=== PATIENT | male | born 1960 | race Hispanic/Latino ===

== ENCOUNTER 2023-11-23 06:32 | Observation (INO) | payer BC ==
[2023-11-21 11:48] LABS: BASOPHILS # (AUTO) 0.03 K/uL (0.00-0.20); BASOPHILS % (AUTO) 0.4 % (0.0-5.0); EOSINOPHILS # (AUTO) 0.11 K/uL (0.00-0.70); EOSINOPHILS % (AUTO) 1.5 % (0.0-8.0); HEMATOCRIT 50.1 % (42-54); IMMATURE GRANULOCYTE ABSOLUTE 0.02 K/uL (0-1); LYMPHOCYTES # (AUTO) 1.4 K/uL (1.0-4.8); LYMPHOCYTES % (AUTO) 19.1 % (21.0-51.0); MEAN CORPUSCULAR HEMOGLOBIN 20.7 pg (27.0-33.0); MEAN CORPUSCULAR HGB CONC 28.1 g/dL (32.0-36.0); MEAN CORPUSCULAR VOLUME 73.5 fL (79-99); MONOCYTES # (AUTO) 0.8 K/uL (0.1-1.0); MONOCYTES % (AUTO) 10.7 % (3.0-13.0); PLATELET COUNT (AUTO) 221 K/uL (130-400); RED BLOOD CELL COUNT(AUTO) 6.82 MIL/uL (4.50-6.20); RED CELL DISTRIBUTION WIDTH 21.9 % (11.0-15.5); WHITE BLOOD COUNT (AUTO) 7.4 K/uL (4.8-10.8)
[2023-11-21 11:59] LABS: INR 1.12 (0.85-1.15)
[2023-11-21 12:01] LABS: PARTIAL THROMBOPLASTIN TIME 26.5 SEC (26.3-35.5)
[2023-11-21 12:19] LABS: CREATININE 0.9 mg/dL (0.5-1.3); POTASSIUM 3.8 mmol/L (3.5-5.1)
[2023-11-21 12:21] VITALS: BP 162/62; PULSE 108; RESP 19
[2023-11-21 13:17] LABS: ADD UA MICROSCOPIC YES; APPEARANCE,URINE CLEAR (CLEAR); BILIRUBIN,URINE NEGATIVE (NEGATIVE); COLOR,URINE LIGHT-YELLOW (YELLOW); GLUCOSE, URINE (UA) >=1000 mg/dL (NEGATIVE); KETONES,URINE NEGATIVE (NEGATIVE); LEUKOCYTE ESTERASE ,URINE NEGATIVE Leu/uL (NEGATIVE); NITRATE,URINE NEGATIVE (NEGATIVE); OCCULT BLOOD,URINE NEGATIVE (NEGATIVE); PROTEIN,URINE NEGATIVE (NEGATIVE)
[2023-11-21 13:18] LABS: MUCUS,URINE RARE LPF (None Seen); RBC,URINE 0-1 /HPF (0-1); SQUAMOUS EPITHELIAL CELL,UR RARE /HPF (0-2); WBC,URINE 0-1 /HPF (0-1)
[2023-11-23] VITALS (26 sets, daily range): BP systolic 102–143; BP diastolic 62–79; PULSE 64–88; RESP 14–19; O2SAT 96
[~2023-11-23] VITALS: Ht 167.6 cm; Wt 71.0 kg
[~2023-11-23 06:32] MED LIST: ATOR20TA65 PO; EMPA1TAB19 PO; FURO20TA4 PO; INSU200I4 SQ; LISI5TAB21 PO; METO50TA18 PO; OMEP40CA21 PO; RIVA20TA PO; TIRZ15PE SQ
[2023-11-23] MEDS: ACETAMINOPHEN 1,000 MG/100 ML VIAL IV ONE (07:02)
[2023-11-23] MEDS ORDERED: CEFAZOLIN SODIUM 1 GM VIAL ONE ×2 (07:02→08:17)
[2023-11-23] MEDS: FAMOTIDINE 20MG VIAL IV ONE (07:02)
[2023-11-23] MEDS ORDERED: LIDOCAINE PF 100MG/5ML (2%) SYRINGE 5ML ONE (07:13)
[2023-11-23] MEDS ORDERED: FENTANYL CITRATE PF 50 MCG/1 ML 2ML VIAL ONE (07:13)
[2023-11-23] MEDS ORDERED: PROPOFOL 10 MG/ML 20ML VIAL IV ONE (07:13)
[2023-11-23] MEDS ORDERED: ROCURONIUM BROMIDE 10MG/1ML 5ML VL ONE ×2 (07:14→09:26)
[2023-11-23] MEDS ORDERED: SUCCINYLCHOLINE CHLORIDE 20 MG/ML 10 ML VIAL ONE (07:14)
[2023-11-23] MEDS ORDERED: KETAMINE 50MG/ML SYRINGE 50 MG/ML DISP.SYRIN ONE (07:16)
[2023-11-23] MEDS ORDERED: ROPIVACAINE 0.5% 5MG/ML 30ML ONE (07:16)
[2023-11-23] MEDS ORDERED: MORPHINE PF 100MG/10ML AMP IV ONE ×2 (07:33→08:41)
[2023-11-23] MEDS ORDERED: KETOROLAC 30MG VIAL (30MG/ML) ONE (07:46)
[2023-11-23] MEDS: 0.9%NACL 1000ML 1,000 ML IV ONE (07:57)
[2023-11-23] MEDS: CEFAZOLIN SODIUM 2 GM VIAL ONE (07:57)
[2023-11-23] MEDS: VANCOMYCIN IV ONE (08:00)
[2023-11-23] MEDS: [UNRECOGNIZED DRUG - OTHER] IV ONE (08:00)
[2023-11-23] MEDS ORDERED: ONDANSETRON 4MG INJ ONE (08:08)
[2023-11-23] MEDS ORDERED: DEXAMETHASONE SOD PHOSPHATE 10MG/ML 1ML VIAL ONE (08:08)
[2023-11-23] MEDS ORDERED: PHENYLEPHRINE HCL 10 MG/ML 1ML VIAL IV ONE (08:13)
[2023-11-23] MEDS ORDERED: VANCOMYCIN 1G/250ML KIT 250 ML IV ONE (08:40)
[2023-11-23] MEDS: TRANEXAMIC ACID 1000MG/10ML ONE (09:04)
[2023-11-23] MEDS ORDERED: NEOSTIGMINE METHYLSULFATE 1MG/ML IV ONE (10:45)
[2023-11-23] MEDS ORDERED: GLYCOPYRROLATE 0.2 MG/ML 5 ML VIAL ONE (10:45)
[2023-11-23] MEDS ORDERED: FERROUS FUMARATE 324 MG TABLET PO PRN (11:00)
[2023-11-23] MEDS ORDERED: CALCIUM CARB 500MG PO PRN (11:00)
[2023-11-23] MEDS ORDERED: POTASSIUM CHLORIDE 10% ELIXIR 20 MEQ/15 ML UDCUP PO PRN (11:00)
[2023-11-23] MEDS ORDERED: KCL 20 MEQ ERTAB PO PRN (11:00)
[2023-11-23] MEDS ORDERED: POTASSIUM CHLORIDE 20MEQ/100ML 100 ML IV PRN (11:00)
[2023-11-23] MEDS: ACETAMINOPHEN 500 MG TABLET PO SCH (11:00)
[2023-11-23] MEDS ORDERED: DiphenhydrAMINE HCL 50 MG/ML VIAL IVP PRN (11:00)
[2023-11-23] MEDS: INSULIN HUMULIN R 100 UNIT/ML 3ML SQ SCH (11:30)
[2023-11-23] MEDS ORDERED: CEFAZOLIN SODIUM 2 GM VIAL IVPB SCH (11:30)
[2023-11-23] MEDS: ONDANSETRON 4MG INJ ONE (11:31)
[2023-11-23] MEDS: MEPERIDINE-PF 25 MG/ML SYG ONE ×2 (11:31→11:47)
[2023-11-23] MEDS: PHARMACY COMMUNICATION MISC SCH (12:00)
[2023-11-23] MEDS: OXYCODONE HCL 5 MG TAB PO PRN (15:50)
[2023-11-23] MEDS: 0.9%NACL 1000ML 1,000 ML IV SCH (15:52)
[2023-11-23] MEDS: CEFAZOLIN SODIUM 2 GM VIAL IVPB SCH (15:52)
[2023-11-23] MEDS: FUROSEMIDE 20 MG TABLET PO SCH (20:35)
[2023-11-23] MEDS: FAMOTIDINE 20MG TAB PO SCH (20:35)
[2023-11-23] MEDS: RIVAROXABAN 20 MG TABLET PO SCH (20:35)
[2023-11-23] MEDS: METOPROLOL TARTRATE 50 MG TAB PO SCH (20:35)
[2023-11-23] MEDS: INSULIN GLARGINE 100 UNITS/ML 10 ML VIAL SQ SCH (20:43)
[2023-11-23] MEDS ORDERED: INSULIN DEGLUDEC 66 UNIT SQ SCH (21:00)
[2023-11-23] MEDS ORDERED: CELECOXIB 200 MG CAP PO SCH (21:00)
[2023-11-24] VITALS (12 sets, daily range): BP systolic 114–154; BP diastolic 56–70; PULSE 70–88; RESP 18–22; O2SAT 94–98
[2023-11-24 05:11] LABS: HEMATOCRIT 41.3 % (42-54); MEAN CORPUSCULAR HEMOGLOBIN 20.6 pg (27.0-33.0); MEAN CORPUSCULAR HGB CONC 28.1 g/dL (32.0-36.0); MEAN CORPUSCULAR VOLUME 73.4 fL (79-99); RED BLOOD CELL COUNT(AUTO) 5.63 MIL/uL (4.50-6.20); RED CELL DISTRIBUTION WIDTH 21.3 % (11.0-15.5); WHITE BLOOD COUNT (AUTO) 9.1 K/uL (4.8-10.8)
[2023-11-24 05:32] LABS: CREATININE 0.9 mg/dL (0.5-1.3); POTASSIUM 4.1 mmol/L (3.5-5.1)
[2023-11-24] MEDS ORDERED: NON-FORMULARY MEDICATION 1 EACH (Omeprazole 40 MG) PO SCH (09:00)
[2023-11-24] MEDS: ATORVASTATIN 20 MG TABLET PO SCH (09:16)
[2023-11-24] MEDS: ONDANSETRON 4MG INJ IVP PRN (09:16)
[2023-11-24] MEDS: POLYETHYLENE GLYCOL 3350 17 GM POWD.PACK PO SCH (09:17)
[2023-11-24] MEDS: PANTOPRAZOLE 40 MG TAB DR PO SCH (09:18)
[2023-11-24] MEDS: LISINOPRIL 5 MG TABLET PO SCH (09:18)
[2023-11-24] MEDS: SYNJARDY PO SCH (09:27)
[2023-11-24] MEDS: OXYCODONE HCL 5 MG TAB PO PRN (11:55)
[2023-11-24] MEDS: KETOROLAC 15MG/ML VIAL (15MG/ML) IV PRN (20:20)
[2023-11-25] VITALS (9 sets, daily range): BP systolic 113–143; BP diastolic 53–69; PULSE 64–89; RESP 18–20; O2SAT 96–100
[2023-11-26] VITALS (11 sets, daily range): BP systolic 118–139; BP diastolic 60–63; PULSE 67–78; RESP 18–20; O2SAT 96–100
[2023-11-26] MEDS: CYCLOBENZAPRINE HCL 10 MG TABLET PO PRN (00:11)
[2023-11-26] MEDS: TEMAZEPAM 15 MG CAPSULE PO PRN (00:11)
[2023-11-26] MEDS ORDERED: BISACODYL 10 MG SUPP.RECT RC PRN (11:00)
[2023-11-26] MEDS: ATORVASTATIN 20 MG TABLET PO SCH (20:24)
[2023-11-26] MEDS: TRAMADOL HCL 50 MG TABLET PO PRN (22:04)
[2023-11-27] VITALS (10 sets, daily range): BP systolic 103–136; BP diastolic 56–77; PULSE 66–100; RESP 18–20; O2SAT 96–100
[2023-11-28 04:58] VITALS: BP 103/49; PULSE 50; RESP 19
[2023-11-28 06:52] VITALS: PULSE 72; RESP 18; O2SAT 98
[2023-11-28 06:53] VITALS: O2SAT 98
[2023-11-28 07:40] VITALS: BP 106/71; PULSE 60; RESP 20
[2023-11-28 08:00] VITALS: O2SAT 97
[2023-11-28 11:35] VITALS: BP 127/73; PULSE 81; RESP 20
[2023-11-28] MEDS: OXYCODONE HCL 5 MG TAB PO ONE (17:32)
== END 2023-11-28 17:48 ==
LOC: DAH 06:32 → DAHIP 06:33 → DAH 06:33 → 4DH 12:30
PROVIDERS: ADMIT Orthopaedic Surgery; ATTEND Orthopaedic Surgery
DX: M17.11 Unilateral primary osteoarthritis, right knee (principal); G89.18 Other acute postprocedural pain; M25.561 Pain in right knee; E78.00 Pure hypercholesterolemia, unspecified; I11.9 Hypertensive heart disease without heart failure; I48.20 Chronic atrial fibrillation, unspecified; E11.9 Type 2 diabetes mellitus without complications; G47.33 Obstructive sleep apnea (adult) (pediatric); Z79.899 Other long term (current) drug therapy; Z93.3 Colostomy status
CPT/HCPCS: 80048 ×2; 85025; 85610; 85730; 87086; 81001; 36415 ×2; 87641; 64447; 27447; 96372 ×8; 96365; 82948 ×22; 88311; 88305; 97161; 97116 ×11; 97530 ×14; 93005; 96366; 96375; 85027; 96376 ×4; G0378 ×118; A4663; J7030 ×2; J7120; J3490 ×6; J3010; J0690 ×5; J1100; J0330; J2001; J2704; J2274 ×2; J2405 ×4; J1885 ×8; J2710; J3370 ×2; J2175 ×2; J2795; J2371; J1815 ×7; A9272; A4649 ×3; A4930 ×2; C1713; C1776; A5120; A4215; A4223; A4213; A4222; A4221; A4600

== ENCOUNTER 2025-01-06 07:47 | Day surgery (SDC) | payer BC ==
[2025-01-06] VITALS (11 sets, daily range): BP systolic 112–142; BP diastolic 61–72; PULSE 65–75; RESP 16–18; TEMP 97.1–97.7
[~2025-01-06] VITALS: Ht 167.6 cm; Wt 117.9 kg
[2025-01-06] MEDS: 0.9%NACL 1000ML 1,000 ML IV ONE (10:02)
[2025-01-06] MEDS ORDERED: NAPR-1194 PO (10:07)
[2025-01-06] MEDS ORDERED: GABA-529 PO (10:07)
[2025-01-06] MEDS ORDERED: TAMS-55 PO (10:07)
[2025-01-06] MEDS ORDERED: FINA1TAB13 PO (10:07)
[2025-01-06] MEDS ORDERED: LIDOCAINE HCL 1% 20 ML VIAL ONE (10:32)
== END 2025-01-06 12:30 | disposition home or self-care (01) ==
LOC: DAH 07:47 → ENDO 07:47
PROVIDERS: ATTEND Surgery
DX: Z12.11 Encounter for screening for malignant neoplasm of colon (principal); K57.30 Diverticulosis of large intestine without perforation or abscess without bleeding; K64.1 Second degree hemorrhoids; L29.0 Pruritus ani; R13.10 Dysphagia, unspecified; L03.317 Cellulitis of buttock; I10 Essential (primary) hypertension; E11.9 Type 2 diabetes mellitus without complications; K21.9 Gastro-esophageal reflux disease without esophagitis; G47.33 Obstructive sleep apnea (adult) (pediatric); Z85.09 Personal history of malignant neoplasm of other digestive organs; I48.91 Unspecified atrial fibrillation; E66.01 Morbid (severe) obesity due to excess calories; Z99.89 Dependence on other enabling machines and devices; Z96.651 Presence of right artificial knee joint; Z68.41 Body mass index [BMI] 40.0-44.9, adult; Z79.899 Other long term (current) drug therapy
CPT/HCPCS: 45380; 82948 ×2; J7030; J2704 ×2; A4620; A4215; J3490